=== PATIENT | male | born 1995 | race African-American/Black ===

== ENCOUNTER 2024-04-05 10:38 | Emergency (ER) | payer MEDICAID ==
[~2024-04-05] VITALS: Ht 185.4 cm; Wt 95.3 kg
[2024-04-05 10:50] VITALS: O2SAT 100
[2024-04-05] MEDS: DEXAMETHASONE 10 MG/ML VIAL IM STA (13:30)
[2024-04-05] MEDS: KETOROLAC 30MG/ML VIAL IM STA (13:31)
[2024-04-05] MEDS: ONDANSETRON HCL 4MG/2ML INJ IM STA (13:31)
[2024-04-05] MEDS: PENICILLIN G BENZATHINE 1,200,000 UNITS/2ML SYR IM ONE (13:51)
[2024-04-05 13:52] LABS: HEMATOCRIT. 41.8 % (42.0-52.0); HEMOGLOBIN. 13.3 g/dL (14.0-18.0); MEAN CORPUSCULAR HEMOGLOBIN 24.4 pg (28.0-32.0); MEAN CORPUSCULAR HGB CONC 31.9 g/dL (31.0-37.0); MEAN CORPUSCULAR VOLUME 76.6 fL (80.0-94.0); MEAN PLATELET VOLUME 9.4 fl (7.4-10.4); PLATELET 182 x1000/uL (130-400); RED BLOOD CELL COUNT 5.46 mill/uL (4.7-6.1); RED CELL DISTRIBUTION WIDTH 14.4 % (11.6-14.6)
[2024-04-05 13:55] LABS: DIFFERENTIAL COMMENT 1
[2024-04-05 13:58] LABS: CHLORIDE 107 mEq/L (98-107); POTASSIUM 3.6 mEq/L (3.5-5.1); SODIUM 140 mEq/L (136-145)
[2024-04-05 14:00] LABS: CALCIUM 9.4 mg/dL (8.7-10.4); CARBON DIOXIDE 27 mEq/L (21-32)
[2024-04-05 14:04] LABS: PROTHROMBIN TIME 11.5 sec (9.6-11.0)
[2024-04-05 14:05] LABS: GLUCOSE 107 mg/dL (70-105); UREA NITROGEN BLOOD 11 mg/dL (9-23)
[2024-04-05 14:36] LABS: ANISOCYTOSIS 1+; MICROCYTOSIS 1+; PLATELET ESTIMATE NORMAL
[2024-04-05] MEDS ORDERED: IOHEXOL-300 100 ML BOTTLE ONE (15:04)
[2024-04-05] MEDS ORDERED: NAPR-681 PO (15:29)
[2024-04-05] MEDS ORDERED: AMOX1TAB16 MT (15:29)
[2024-04-05 15:38] VITALS: BP 116/81; PULSE 84; RESP 19; TEMP 37.2; O2SAT 100
== END 2024-04-05 15:39 | disposition home or self-care (01) ==
LOC: ER 10:38
DX: J02.9 Acute pharyngitis, unspecified (principal); K12.2 Cellulitis and abscess of mouth
CPT/HCPCS: 80048; 85025; 85610; 36415; 71045; 70491; 96372; 99285; Q9967; J1100; J1885; J2405; J0561; Z7610 ×2

== ENCOUNTER 2024-04-12 04:23 | Emergency (ER) | payer MEDICAID ==
[~2024-04-12] VITALS: Ht 185.4 cm; Wt 97.0 kg
[~2024-04-12 04:23] MED LIST: AMOX1TAB16 MT; NAPR-681 PO
[2024-04-12 05:13] VITALS: BP 112/79; PULSE 69; RESP 18; TEMP 36.9; O2SAT 99
== END 2024-04-12 07:59 | disposition home or self-care (01) ==
LOC: ER 04:33
DX: J02.9 Acute pharyngitis, unspecified (principal)
CPT/HCPCS: 99281